=== PATIENT | male | born 1990 | race American Indian/Alaskan Native ===

== ENCOUNTER 2018-06-26 13:25 | Emergency (ER) | payer SELFPAY ==
[2018-06-26 13:32] VITALS: BP 144/75
--- NOTE | 2018-06-26 13:46 | Emergency Department Report ---
Chief Complaint: Urogenital-Male Stated Complaint: DISCHARGE Time Seen by Provider: 06/26/18 13:37 - HPI History of Present Illness: Patient is a 28-year-old -[place] male who is presenting with penile discharge. Patient also has some urinary discomfort. Patient had recent upper detected 6 L he has ASCVD. Patient denies any fevers chills nausea vomiting abdominal pain or hematuria at this time. - ROS Review of Systems: All other systems are reviewed and are negative - Exam Vital Signs: Vital Signs 06/26/18 13:29 Temperature 98.3 F Pulse Rate 76 Respiratory 18 Rate Blood Pressure 144/75 O2 Sat by Pulse 97 Oximetry Physical Exam: Abdomen soft nontender lungs clear to auscultation MSE screening note: Focused history and physical exam performed. Due to findings the following was ordered: ED Medical Decision Making - Medical Decision Making Patient is a nonmedical emergency at this time. Patient is opted to not pale or 150s, to be treated. Patient is given resources for the health department which is a much better treatment option for this patient. ED Disposition for MSE Clinical Impression: STD (male) Disposition: Z-07 MED SCREENING EXAM-LEFT Is pt being admited?: No Does the pt Need Aspirin: No Condition: Stable
== END 2018-06-26 13:56 | disposition left against medical advice (07) ==
LOC: ED 13:25
DX: Z20.2 Contact with and (suspected) exposure to infections with a predominantly sexual mode of transmission (principal)
CPT/HCPCS: 99282